=== PATIENT | male | born 2000 | race Caucasian/White ===

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

== ENCOUNTER 2021-07-15 22:45 | Emergency (ER) | payer OTHER, MEDICAID ==
[~2021-07-15] VITALS: Ht 180.3 cm; Wt 95.0 kg
[2021-07-15 22:54] VITALS: BP 122/81; PULSE 107
[2021-07-15 23:37] LABS: STREP SCREEN NEGATIVE
[2021-07-15 23:59] VITALS: TEMP 99.5
== END 2021-07-16 00:16 | disposition home or self-care (01) ==
LOC: COL.ER 22:45
PROVIDERS: Nurse Practitioner Primary Care
DX: B34.9 Viral infection, unspecified (principal); Z87.891 Personal history of nicotine dependence; Z20.822 Contact with and (suspected) exposure to COVID-19; Z28.311 Partially vaccinated for COVID-19

== ENCOUNTER 2022-12-13 10:32 | Emergency (ER) | payer OTHER, MEDICAID ==
[~2022-12-13] VITALS: Ht 180.3 cm; Wt 113.6 kg
[2022-12-13 10:46] VITALS: BP 144/91; TEMP 98.4
[2022-12-13] MEDS ORDERED: AMOXICILLIN 8751 TAB PO (11:42)
[2022-12-13 11:54] VITALS: PULSE 87
== END 2022-12-13 11:54 | disposition home or self-care (01) ==
LOC: COL.ER 10:32
DX: J01.90 Acute sinusitis, unspecified (principal)

== ENCOUNTER → 2023-06-03 | Outpatient (CLI) | payer OTHER ==
[~2023-06-03] MED LIST: AMOXICILLIN 8751 TAB PO
== END ==
LOC: COL.RAD 12:39
DX: R06.02 Shortness of breath (principal)